=== PATIENT | female | born 1975 | race Caucasian/White ===

== ENCOUNTER 2018-03-03 11:02 | Emergency (ER) | payer MEDICARE ==
[~2018-03-03] VITALS: Ht 177.8 cm; Wt 54.4 kg
[2018-03-03] MEDS ORDERED: Acetaminophen 500mg (ES) tab ORAL ONE (12:00)
--- NOTE | 2018-03-03 12:29 | Emergency Room Report ---
History of Present Illness General Chief Complaint: Lower Extremity Injury Source: Caregiver Present Illness HPI 42-year-old female patient presents ER complaining of left foot pain status post trauma. Reports that an IV stand collapsed and fell onto her left while visiting her in [facility]. Reports pain with ambulation. Denies loss of sensation. Reports has not taken any medication for relief of symptoms. Denies other acute symptoms. Denies hitting head. 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 Hx Gastrointestinal Problems: Yes - colitis Review of Systems All Other Systems: negative except mentioned in HPI Physical Exam Vital Signs Date Time Temp Pulse Resp B/P (MAP) Pulse Ox O2 Delivery O2 Flow Rate FiO2 03/03/18 11:27 98.5 92 20 113/70 94 Room Air 98.4 Sp02 EP Interpretation: reviewed, normal General Appearance: well appearing, no apparent distress, alert, GCS 15, non- toxic Head: normocephalic, atraumatic Neck: full range of motion Respiratory: lungs clear, normal breath sounds, no rhonchi, no respiratory distress, no accessory muscle use, no wheezing, speaking full sentences Cardiovascular #1: regular rate, rhythm, no edema Cardiovascular #2: 2+ dorsalis pedis (R), 2+ dorsalis pedis (L) Musculoskeletal: back normal, digits/nails normal, no calf tenderness, decreased range of motion - secondary to pain, swelling - mild, other - ecchymosis over dorsum of foot over, tender Neurologic: alert, oriented x3, responsive, motor strength/tone normal, sensory intact Psychiatric: mood/affect normal Medical Decision Making PA Attestation Dr. Kaplan is my supervising Physician whom patient management has been discussed with. Diagnostic Impression: Primary Impression: Injury of foot, left ER Course Pt. presents to the ED c/o left foot pain. Ddx considered but are not limited to fracture, sprain, strain, contusion, dislocation. No erythema, no warmth to touch, no fever, nontoxic appearing, low suspicion for septic joint. Vital signs: are WNL, pt. is afebrile Ordered X-ray and pain medication. ER COURSE Provided with pain medication. An X-ray of the left foot was ordered, results show no acute fracture, per the preliminary reading. Reports pain symptoms improved. Splint and post op shoe was applied to the left foot was checked afterwards by me showing good alignment and support with distal neurovascular functioning intact. Crutches provided. Patient instructed on RICE method: rest, ice, compression, elevation. Patient instructed to WBAT. Discuss referral to ortho/pain management/PT as needed. Discuss further imaging with MRI/CT as needed. Informed patient to she may contact medical records for official report from radiologist. DISCHARGE: Patient declined Rx for medication, reports she will receive medication from her physician. At this time pt. is stable for d/c to home. Patient is resting comfortably, in no acute distress, nontoxic appearing, talking without difficulty. Will provide printed patient care instructions, and any necessary prescriptions. Patient instructed to follow with primary care provider in 3 - 5 days and to request further orthopedic follow-up. Care plan and follow up instructions have been discussed with the patient prior to discharge. Take medications as directed. Patient questions asked and answered. Patient reports understanding and agreement to treatment plan. ER precautions given, patient instructed to return to ER immediately for any new or worsening of symptoms. - Please note that this Emergency Department Report was dictated using [employer] design engineer technology software, occasionally this can lead to erroneous entry secondary to interpretation by the dictation equipment. Other X-Ray Diagnostic Results Other X-Ray Diagnostic Results : X-Ray ordered: left foot # of Views/Limited Vs Complete: 3 View Indication: Pain EP Interpretation: Yes PA Xray: Interpretation reviewed, by supervising MD, and agrees with findings. Interpretation: no dislocation, no soft tissue swelling, no fractures Impression: No acute disease PA Scribe Text Kale Dutta PA-C Last Vital Signs Date Time Temp Pulse Resp B/P (MAP) Pulse Ox O2 Delivery O2 Flow Rate FiO2 03/03/18 11:27 98.5 92 20 113/70 94 Room Air 98.4 Disposition: HOME, SELF-CARE Condition: Stable Referrals: NOT CHOSEN IPA/MD,REFERRING (PCP) Patient Instructions: Foot Contusion Additional Instructions: Patient instructed to follow up with primary care provider and discuss further referral to orthopedics. Patient instructed on RICE method: rest, ice, compression, elevation. Patient instructed to NWB. Take medications as directed. SE drowsiness, do not take prior to drinking, driving or operating heavy machinery. Patient questions asked and answered. ER precautions given, patient instructed to return to ER immediately for any new or worsening of symptoms. Ari Dutta Mar 03, 2018 12:29
[2018-03-03 12:34] VITALS: BP 119/55
[2018-03-03] MEDS ORDERED: ACETAMINOPHEN-1 EAC1 ORAL (13:07)
[2018-03-03] MEDS ORDERED: Norco 5mg/325mg tab ORAL ONE (13:15)
[2018-03-03 13:25] VITALS: BP 111/68
--- NOTE | 2018-03-04 11:09 | Diagnostic Imaging Report ---
Indication: Pain Technique: 3 views left foot Comparison: none Findings: There is a second digit toe ring, which could obscure pathology. No acute fractures. No dislocations. Joint spaces are preserved Impression: Negative
== END 2018-03-03 13:25 | disposition home or self-care (01) ==
LOC: EMR 12:02
DX: S99.922A Unspecified injury of left foot, initial encounter (principal); J44.9 Chronic obstructive pulmonary disease, unspecified; Z91.018 Allergy to other foods; Z88.7 Allergy status to serum and vaccine; W20.8XXA Other cause of strike by thrown, projected or falling object, initial encounter; Y92.239 Unspecified place in hospital as the place of occurrence of the external cause
CPT/HCPCS: 99283